=== PATIENT | female | born 1945 | race Hispanic/Latino ===

== ENCOUNTER → 2017-10-23 | Outpatient (CLI) | payer OTHER, MEDICARE | END | disposition home or self-care (01) | LOC: RAH 11:20 | PROVIDERS: ATTEND Internal Medicine | DX: Z12.31 Encounter for screening mammogram for malignant neoplasm of breast (principal) | CPT/HCPCS: 77067 ==

== ENCOUNTER 2017-11-07 12:59 | Emergency (ER) | payer OTHER, MEDICARE ==
[2017-11-07 13:49] LABS: BASOPHILS % (AUTO) 0.7 % (0.0-5.0); EOSINOPHILS % (AUTO) 1.7 % (0.0-8.0); HEMATOCRIT 38.5 % (36-48); LYMPHOCYTES % (AUTO) 23.4 % (21.0-51.0); MEAN CORPUSCULAR HEMOGLOBIN 31.3 pg (27.0-33.0); MEAN CORPUSCULAR HGB CONC 35.6 g/dL (32.0-36.0); MEAN CORPUSCULAR VOLUME 87.8 fL (79-99); MONOCYTES % (AUTO) 5.2 % (3.0-13.0); PLATELET COUNT (AUTO) 181 K/uL (130-400); RED BLOOD CELL COUNT(AUTO) 4.39 MIL/uL (4.00-5.50); WHITE BLOOD COUNT (AUTO) 4.9 K/uL (4.8-10.8)
[2017-11-07 13:58] LABS: CREATININE 0.7 mg/dL (0.5-1.5); POTASSIUM 3.9 mmol/L (3.5-5.1)
[2017-11-07] MEDS ORDERED: ASPIRIN 325 MG TABLET ONE (14:01)
[2017-11-07 14:12] LABS: ALBUMIN 3.9 g/dL (3.5-5.0); BILIRUBIN,TOTAL 0.7 mg/dL (0.2-1.0); CREATINE KINASE MB 1.2 ng/mL (0.5-3.6); TOTAL PROTEIN, SERUM 7.3 g/dL (6.0-8.3)
== END 2017-11-07 15:18 | disposition home or self-care (01) ==
LOC: EDH 12:59
DX: R07.89 Other chest pain (principal); I10 Essential (primary) hypertension; E78.5 Hyperlipidemia, unspecified; Z88.0 Allergy status to penicillin; Z88.8 Allergy status to other drugs, medicaments and biological substances; Z90.49 Acquired absence of other specified parts of digestive tract; Z98.890 Other specified postprocedural states
CPT/HCPCS: 36415; 71045; 80053; 82550; 82553; 84484; 85025; 93005

== ENCOUNTER → 2018-11-10 | Outpatient (CLI) | payer OTHER, MEDICARE | END | disposition home or self-care (01) | LOC: SHCH 11:22 | PROVIDERS: ATTEND Internal Medicine Cardiovascular Disease | DX: I10 Essential (primary) hypertension (principal) | CPT/HCPCS: 93306 ==

== ENCOUNTER → 2018-11-14 | Outpatient (CLI) | payer MEDICARE, OTHER | END | disposition home or self-care (01) | LOC: RAH 11:15 | PROVIDERS: ATTEND Internal Medicine | DX: Z12.31 Encounter for screening mammogram for malignant neoplasm of breast (principal) | CPT/HCPCS: 77067 ==

== ENCOUNTER → 2020-05-06 | Outpatient (CLI) | payer OTHER, MEDICARE | END | disposition home or self-care (01) | LOC: RAH 05-01 00:20 | PROVIDERS: ATTEND Internal Medicine | DX: Z12.31 Encounter for screening mammogram for malignant neoplasm of breast (principal) | CPT/HCPCS: 77067 ==

== ENCOUNTER 2020-07-02 17:52 | Observation (INO) | payer OTHER, MEDICARE ==
[~2020-07-02] VITALS: Ht 154.9 cm; Wt 72.0 kg
[2020-07-02] MEDS ORDERED: SODIUM CHLORIDE 0.9% 1000ML 1,000 ML IV ONE (18:20)
[2020-07-02] MEDS ORDERED: ASPIRIN 325 MG TABLET ONE (18:20)
[2020-07-02] MEDS ORDERED: NITROGLYCERIN 0.4 MG SL TAB SL ONE (18:20)
[2020-07-02 18:37] LABS: BASOPHILS % (AUTO) 0.4 % (0.0-5.0); EOSINOPHILS % (AUTO) 2.8 % (0.0-8.0); HEMATOCRIT 38.9 % (36-48); LYMPHOCYTES % (AUTO) 35.6 % (21.0-51.0); MEAN CORPUSCULAR HEMOGLOBIN 29.7 pg (27.0-33.0); MEAN CORPUSCULAR HGB CONC 33.4 g/dL (32.0-36.0); MONOCYTES % (AUTO) 7.9 % (3.0-13.0); NEUTROPHILS % (AUTO) 53.1 % (40.0-77.0); PLATELET COUNT (AUTO) 198 K/uL (130-400); RED BLOOD CELL COUNT(AUTO) 4.37 MIL/uL (4.00-5.50); RED CELL DISTRIBUTION WIDTH 13.3 % (11.0-15.5); WHITE BLOOD COUNT (AUTO) 5.3 K/uL (4.8-10.8)
[2020-07-02 18:45] LABS: CREATININE 0.8 mg/dL (0.5-1.5); POTASSIUM 3.5 mmol/L (3.5-5.1)
[2020-07-02 18:47] LABS: INR 0.94 (0.85-1.15); PARTIAL THROMBOPLASTIN TIME 25.7 SEC (26.3-35.5); PROTHROMBIN TIME 10.2 SEC (9.6-11.6)
[2020-07-02 18:49] LABS: ALBUMIN 3.9 g/dL (3.5-5.0); BILIRUBIN,TOTAL 0.4 mg/dL (0.2-1.0); TOTAL PROTEIN, SERUM 7.7 g/dL (6.0-8.3)
[2020-07-02 19:06] LABS: B-TYPE NATRIURETIC PEPTIDE 9 pg/mL (0-100)
[2020-07-02 19:39] LABS: APPEARANCE,URINE Clear (CLEAR); BILIRUBIN,URINE Negative (NEGATIVE); COLOR,URINE Yellow (YELLOW); GLUCOSE, URINE (UA) Negative (NEGATIVE); KETONES,URINE Negative (NEGATIVE); LEUKOCYTE ESTERASE ,URINE Moderate (NEGATIVE); NITRATE,URINE Negative (NEGATIVE); OCCULT BLOOD,URINE Negative (NEGATIVE); PH,URINE 6.5 (5.0-8.0); PROTEIN,URINE Negative (NEGATIVE); UROBILINOGEN,URINE 0.2 mg/dL (0.2-1.0)
[2020-07-02 19:58] LABS: BACTERIA,URINE Few /HPF (None Seen); RBC,URINE 0-1 /HPF (0-1); SQUAMOUS EPITHELIAL CELL,UR Few /HPF (0-2)
[2020-07-02] MEDS ORDERED: CEFTRIAXONE SODIUM 1 GM ONE (20:51)
[2020-07-02] MEDS ORDERED: NITROGLYCERIN 0.4 MG SL TAB SL PRN (23:45)
[2020-07-03 01:15] VITALS: BP 160/96
[2020-07-03 02:00] LABS: CREATINE KINASE, TOTAL 79 U/L (21-232); MYOGLOBIN 41 ng/mL (10-92); TROPONIN I < 0.04 ng/mL (0.00-0.06)
[2020-07-03 04:00] VITALS: BP 152/71
[2020-07-03 07:03] LABS: CREATINE KINASE, TOTAL 85 U/L (21-232); MYOGLOBIN 40 ng/mL (10-92); TROPONIN I < 0.04 ng/mL (0.00-0.06)
[2020-07-03 08:00] VITALS: BP 159/61
[2020-07-03 12:00] VITALS: BP 149/69
[2020-07-03 16:00] VITALS: BP 132/60
--- NOTE | 2020-07-03 16:23 | NUR ---
cm note met with patient and states resides at home alone, independent with ambulation and adls. no dme , no home services. dc plan is back home no dc needs. Addendum: 07/03/20 at 1625 by ABDIAZIZ OROZCO CM Amended: Links added.
== END 2020-07-03 18:19 | disposition home or self-care (01) ==
LOC: EDH 17:52 → EDHIP 21:45 → 3BH 07-03 01:00
PROVIDERS: ADMIT Internal Medicine; ATTEND Internal Medicine
DX: R07.89 Other chest pain (principal); I10 Essential (primary) hypertension; E78.5 Hyperlipidemia, unspecified; F41.9 Anxiety disorder, unspecified; Z90.49 Acquired absence of other specified parts of digestive tract; Z79.899 Other long term (current) drug therapy; Z88.0 Allergy status to penicillin; Z88.8 Allergy status to other drugs, medicaments and biological substances
CPT/HCPCS: 36415 ×2; 71045; 80053; 81001; 82550 ×3; 82948 ×3; 83690; 83874 ×2; 83880; 84484 ×3; 85025; 85610; 85730; 87077; 87088; 87186; 93005; 99285; G0378 ×20; J0696; J7030

== ENCOUNTER → 2021-02-21 | Outpatient (CLI) | payer OTHER, MEDICARE | END | disposition home or self-care (01) | LOC: RAH 08:09 | PROVIDERS: ATTEND Internal Medicine | DX: N20.0 Calculus of kidney (principal); K80.20 Calculus of gallbladder without cholecystitis without obstruction | CPT/HCPCS: 74176 ==

== ENCOUNTER → 2021-06-05 | Outpatient (CLI) | payer OTHER, MEDICARE | END | disposition home or self-care (01) | LOC: RAH 14:57 | PROVIDERS: ATTEND Internal Medicine | DX: Z12.31 Encounter for screening mammogram for malignant neoplasm of breast (principal) | CPT/HCPCS: 77067 ==

== ENCOUNTER 2021-11-05 05:44 | Emergency (ER) | payer OTHER, MEDICARE ==
[~2021-11-05] VITALS: Ht 154.9 cm; Wt 71.7 kg
[2021-11-05 06:02] LABS: BASOPHILS % (AUTO) 0.6 % (0.0-5.0); EOSINOPHILS % (AUTO) 3.2 % (0.0-8.0); HEMATOCRIT 42.1 % (36-48); MEAN CORPUSCULAR VOLUME 90.7 fL (79-99); MONOCYTES % (AUTO) 7.6 % (3.0-13.0); NEUTROPHILS % (AUTO) 50.4 % (40.0-77.0); PLATELET COUNT (AUTO) 186 K/uL (130-400); RED BLOOD CELL COUNT(AUTO) 4.64 MIL/uL (4.00-5.50); RED CELL DISTRIBUTION WIDTH 13.5 % (11.0-15.5); WHITE BLOOD COUNT (AUTO) 5.3 K/uL (4.8-10.8)
[2021-11-05 06:16] LABS: BILIRUBIN,URINE Negative (NEGATIVE); COLOR,URINE Yellow (YELLOW); GLUCOSE, URINE (UA) Negative (NEGATIVE); KETONES,URINE Negative (NEGATIVE); LEUKOCYTE ESTERASE ,URINE Large (NEGATIVE); NITRATE,URINE Negative (NEGATIVE); OCCULT BLOOD,URINE Trace (NEGATIVE); PROTEIN,URINE Trace mg/dL (NEGATIVE); UROBILINOGEN,URINE 0.2 mg/dL (0.2-1.0)
[2021-11-05 06:17] LABS: APPEARANCE,URINE CLEAR (CLEAR)
[2021-11-05 06:19] LABS: ALBUMIN 3.9 g/dL (3.5-5.0); BILIRUBIN,TOTAL 0.7 mg/dL (0.2-1.0); CREATININE 0.7 mg/dL (0.5-1.5); POTASSIUM 3.9 mmol/L (3.5-5.1); TOTAL PROTEIN, SERUM 7.3 g/dL (6.0-8.3)
[2021-11-05] MEDS ORDERED: KETOROLAC 15MG/ML VIAL (15MG/ML) ONE (07:04)
[2021-11-05] MEDS ORDERED: CYCL10TA16 PO (07:05)
[2021-11-05] MEDS ORDERED: IBUP-2070 PO (07:05)
[2021-11-05 07:20] LABS: BACTERIA,URINE Few /HPF (None Seen); RBC,URINE 0-1 /HPF (0-1); SQUAMOUS EPITHELIAL CELL,UR 50-100 /HPF (0-2)
[2021-11-05] MEDS ORDERED: KETOROLAC 15MG/ML VIAL (15MG/ML) IM ONE (07:30)
[2021-11-05 07:44] VITALS: BP 133/59
== END 2021-11-05 07:44 | disposition home or self-care (01) ==
LOC: EDH 05:44
DX: R07.89 Other chest pain (principal); E78.00 Pure hypercholesterolemia, unspecified; Z88.0 Allergy status to penicillin; Z88.8 Allergy status to other drugs, medicaments and biological substances; Z90.89 Acquired absence of other organs; Z98.890 Other specified postprocedural states
CPT/HCPCS: 36415; 71045; 80053; 81001; 84484; 85025; 87088; 93005; 96372; 99285; J1885

== ENCOUNTER 2022-03-02 19:58 | Emergency (ER) | payer OTHER, MEDICARE ==
[~2022-03-02] VITALS: Ht 157.5 cm; Wt 68.0 kg
[~2022-03-02 19:58] MED LIST: CYCL10TA16 PO; IBUP-2070 PO
[2022-03-02 20:31] VITALS: BP 167/80
[2022-03-02 21:01] LABS: BASOPHILS % (AUTO) 0.4 % (0.0-5.0); EOSINOPHILS % (AUTO) 0.8 % (0.0-8.0); HEMATOCRIT 40.9 % (36-48); LYMPHOCYTES % (AUTO) 16.5 % (21.0-51.0); MEAN CORPUSCULAR HEMOGLOBIN 29.7 pg (27.0-33.0); MEAN CORPUSCULAR VOLUME 87.4 fL (79-99); MONOCYTES % (AUTO) 13.7 % (3.0-13.0); NEUTROPHILS % (AUTO) 68.4 % (40.0-77.0); PLATELET COUNT (AUTO) 160 K/uL (130-400); RED BLOOD CELL COUNT(AUTO) 4.68 MIL/uL (4.00-5.50); RED CELL DISTRIBUTION WIDTH 13.7 % (11.0-15.5)
[2022-03-02 21:22] LABS: ALBUMIN 3.9 g/dL (3.5-5.0); CREATININE 0.9 mg/dL (0.5-1.5); POTASSIUM 3.4 mmol/L (3.5-5.1); TOTAL PROTEIN, SERUM 8.1 g/dL (6.0-8.3)
== END 2022-03-02 21:57 | disposition home or self-care (01) ==
LOC: EDH 19:58
DX: U07.1 COVID-19 (principal); I10 Essential (primary) hypertension; Z88.0 Allergy status to penicillin; Z88.8 Allergy status to other drugs, medicaments and biological substances; Z79.899 Other long term (current) drug therapy
CPT/HCPCS: 99285; 71045; 87635; 84484; 80053; 85025; 87880; 87804 ×2; 36415; 93005; C9803

== ENCOUNTER → 2022-06-06 | Outpatient (CLI) | payer OTHER, MEDICARE | END | disposition home or self-care (01) | LOC: RAH 09:38 | PROVIDERS: ATTEND Internal Medicine | DX: Z12.31 Encounter for screening mammogram for malignant neoplasm of breast (principal) | CPT/HCPCS: 77067 ==

== ENCOUNTER 2022-08-03 14:38 | Emergency (ER) | payer OTHER, MEDICARE ==
[~2022-08-03] VITALS: Ht 154.9 cm; Wt 71.2 kg
[2022-08-03 14:49] VITALS: BP 134/31
[2022-08-03] MEDS ORDERED: CETIRIZINE HCL 5 MG TABLET PO SCH (15:30)
[2022-08-03] MEDS ORDERED: DIPH25 PO (15:34)
== END 2022-08-03 15:44 | disposition home or self-care (01) ==
LOC: EDH 14:38
DX: L29.9 Pruritus, unspecified (principal); T36.8X5A Adverse effect of other systemic antibiotics, initial encounter; I10 Essential (primary) hypertension; E78.00 Pure hypercholesterolemia, unspecified; Z88.0 Allergy status to penicillin; Z79.1 Long term (current) use of non-steroidal anti-inflammatories (NSAID); Z88.1 Allergy status to other antibiotic agents; Y92.89 Other specified places as the place of occurrence of the external cause
CPT/HCPCS: 99282

== ENCOUNTER 2022-09-16 06:52 | Emergency (ER) | payer OTHER, MEDICARE ==
[~2022-09-16] VITALS: Ht 154.9 cm; Wt 71.7 kg
[~2022-09-16 06:52] MED LIST changes: +DIPH-1242 PO
[2022-09-16 06:56] VITALS: BP 150/76
[2022-09-16] MEDS ORDERED: ACETAMINOPHEN 325 MG TAB PO ONE (08:30)
[2022-09-16 08:42] LABS: BASOPHILS % (AUTO) 0.4 % (0.0-5.0); EOSINOPHILS % (AUTO) 0.9 % (0.0-8.0); HEMATOCRIT 39.3 % (36-48); LYMPHOCYTES % (AUTO) 12.1 % (21.0-51.0); MEAN CORPUSCULAR HGB CONC 33.8 g/dL (32.0-36.0); MEAN CORPUSCULAR VOLUME 88.5 fL (79-99); MONOCYTES % (AUTO) 9.3 % (3.0-13.0); NEUTROPHILS % (AUTO) 76.9 % (40.0-77.0); PLATELET COUNT (AUTO) 165 K/uL (130-400); RED BLOOD CELL COUNT(AUTO) 4.44 MIL/uL (4.00-5.50); RED CELL DISTRIBUTION WIDTH 13.7 % (11.0-15.5); WHITE BLOOD COUNT (AUTO) 6.7 K/uL (4.8-10.8)
[2022-09-16 08:53] LABS: CREATININE 0.8 mg/dL (0.5-1.5); POTASSIUM 3.7 mmol/L (3.5-5.1)
[2022-09-16 09:00] LABS: ALBUMIN 3.7 g/dL (3.5-5.0); CRP QUANTITATIVE 42.7 mg/L (0.00-9.0); TOTAL PROTEIN, SERUM 7.9 g/dL (6.0-8.3)
[2022-09-16 09:47] LABS: B-TYPE NATRIURETIC PEPTIDE 15 pg/mL (0-100)
[2022-09-16] MEDS ORDERED: BENZ-39 PO (10:21)
[2022-09-16] MEDS ORDERED: ACET325T51 PO (10:21)
== END 2022-09-16 10:49 | disposition home or self-care (01) ==
LOC: EDH 06:52
DX: U07.1 COVID-19 (principal); J18.9 Pneumonia, unspecified organism; E78.00 Pure hypercholesterolemia, unspecified; I10 Essential (primary) hypertension; J45.909 Unspecified asthma, uncomplicated; Z88.0 Allergy status to penicillin; Z88.1 Allergy status to other antibiotic agents; Z98.890 Other specified postprocedural states
CPT/HCPCS: 99285; 71045; 87635; 82550; 83735; 84484; 80053; 83880; 85025; 87880; 87804 ×2; 86140; 36415; 93005; 84145; C9803

== ENCOUNTER → 2022-12-12 | Outpatient (CLI) | payer MEDICARE, OTHER ==
[~2022-12-12] MED LIST changes: +ACET325T51 PO; +BENZ-39 PO
[2022-12-12 12:25] LABS: ALBUMIN 3.9 g/dL (3.5-5.0); CREATININE 0.8 mg/dL (0.5-1.5); POTASSIUM 3.7 mmol/L (3.5-5.1); TOTAL PROTEIN, SERUM 7.6 g/dL (6.0-8.3)
== END | disposition home or self-care (01) ==
LOC: LAB 08:17
PROVIDERS: ATTEND Internal Medicine Cardiovascular Disease
DX: R07.9 Chest pain, unspecified (principal)
CPT/HCPCS: 36415; 80053

== ENCOUNTER → 2022-12-21 | Outpatient (CLI) | payer OTHER ==
[~2022-12-21] MED LIST changes: +IOHEXOL 350 MG/ML 100ML INFUS..BTL IV ONE
== END | disposition home or self-care (01) ==
LOC: RAH 08:34
PROVIDERS: ATTEND Internal Medicine Cardiovascular Disease
DX: R07.9 Chest pain, unspecified (principal)
CPT/HCPCS: 75574; Q9967

== ENCOUNTER → 2022-12-26 | Outpatient (CLI) | payer OTHER ==
[~2022-12-26] MED LIST changes: -IOHEXOL 350 MG/ML 100ML INFUS..BTL IV ONE
== END | disposition home or self-care (01) ==
LOC: RAH 11:05
PROVIDERS: ATTEND Internal Medicine
DX: E04.2 Nontoxic multinodular goiter (principal)
CPT/HCPCS: 76536

== ENCOUNTER → 2023-06-10 | Outpatient (CLI) | payer OTHER | END | disposition home or self-care (01) | LOC: RAH 10:09 | PROVIDERS: ATTEND Internal Medicine | DX: Z12.31 Encounter for screening mammogram for malignant neoplasm of breast (principal) | CPT/HCPCS: 77067 ==

== ENCOUNTER 2023-09-05 06:44 | Emergency (ER) | payer OTHER ==
[~2023-09-05] VITALS: Ht 157.5 cm; Wt 73.5 kg
[2023-09-05 07:21] LABS: APPEARANCE,URINE CLOUDY (CLEAR); BILIRUBIN,URINE NEGATIVE (NEGATIVE); COLOR,URINE LIGHT-YELLOW (YELLOW); GLUCOSE, URINE (UA) NEGATIVE (NEGATIVE); KETONES,URINE NEGATIVE (NEGATIVE); LEUKOCYTE ESTERASE ,URINE 75 Leu/uL (NEGATIVE); NITRATE,URINE NEGATIVE (NEGATIVE); OCCULT BLOOD,URINE NEGATIVE (NEGATIVE); PROTEIN,URINE 30 mg/dL (NEGATIVE); UROBILINOGEN,URINE 0.2 mg/dL (0.2-1.0)
[2023-09-05 07:23] LABS: ADD UA MICROSCOPIC YES
[2023-09-05 07:25] LABS: MUCUS,URINE RARE LPF (None Seen); SQUAMOUS EPITHELIAL CELL,UR MOD /HPF (0-2)
[2023-09-05 07:33] LABS: SARS-CoV-2, RNA, NAAT NEGATIVE SARS CoV-2 (NEGATIVE)
[2023-09-05 07:36] LABS: INFLUENZA TYPE A Negative For Type A (NEGATIVE); INFLUENZA TYPE B Negative For Type B (NEGATIVE)
[2023-09-05] MEDS ORDERED: 0.9%NACL 1000ML 1,000 ML IV SCH (08:00)
[2023-09-05] MEDS ORDERED: INSULIN HUMULIN R 100 UNIT/ML 3ML IV ONE (08:00)
[2023-09-05] MEDS ORDERED: MECLIZINE HCL 25 MG TABLET PO ONE ×2 (08:00→08:30)
[2023-09-05 08:01] LABS: BASOPHILS # (AUTO) 0.03 K/uL (0.00-0.20); BASOPHILS % (AUTO) 0.7 % (0.0-5.0); EOSINOPHILS # (AUTO) 0.09 K/uL (0.00-0.70); HEMATOCRIT 39.7 % (36-48); IMMATURE GRANULOCYTE ABSOLUTE 0.01 K/uL (0-1); LYMPHOCYTES # (AUTO) 1.2 K/uL (1.0-4.8); LYMPHOCYTES % (AUTO) 25.3 % (21.0-51.0); MEAN CORPUSCULAR HEMOGLOBIN 30.3 pg (27.0-33.0); MEAN CORPUSCULAR VOLUME 89.2 fL (79-99); MONOCYTES # (AUTO) 0.3 K/uL (0.1-1.0); MONOCYTES % (AUTO) 6.4 % (3.0-13.0); NEUTROPHILS % (AUTO) 65.4 % (40.0-77.0); PLATELET COUNT (AUTO) 176 K/uL (130-400); RED BLOOD CELL COUNT(AUTO) 4.45 MIL/uL (4.00-5.50); RED CELL DISTRIBUTION WIDTH 13.4 % (11.0-15.5); WHITE BLOOD COUNT (AUTO) 4.6 K/uL (4.8-10.8)
[2023-09-05 08:13] LABS: ALBUMIN 3.5 g/dL (3.5-5.0); BILIRUBIN,TOTAL 0.8 mg/dL (0.2-1.0); CREATININE 0.7 mg/dL (0.5-1.5); POTASSIUM 3.6 mmol/L (3.5-5.1); TOTAL PROTEIN, SERUM 7.2 g/dL (6.0-8.3)
[2023-09-05] MEDS ORDERED: FAMOTIDINE 20MG VIAL IV ONE (08:30)
[2023-09-05] MEDS ORDERED: METOCLOPRAMIDE 10 MG/2 ML VIAL IVP ONE (08:30)
[2023-09-05] MEDS ORDERED: KETOROLAC 30MG VIAL (30MG/ML) IVP ONE (08:30)
[2023-09-05] MEDS ORDERED: METO-296 PO (10:22)
[2023-09-05] MEDS ORDERED: CIPR-278 PO (10:22)
[2023-09-05] MEDS ORDERED: CEPHALEXIN 500 MG CAPSULE ONE (10:30)
[2023-09-05 10:50] VITALS: BP 154/73; PULSE 72; RESP 16; O2SAT 97
== END 2023-09-05 11:10 | disposition home or self-care (01) ==
LOC: EDH 06:44
DX: G44.209 Tension-type headache, unspecified, not intractable (principal); H81.10 Benign paroxysmal vertigo, unspecified ear; N39.0 Urinary tract infection, site not specified; J45.909 Unspecified asthma, uncomplicated; E78.00 Pure hypercholesterolemia, unspecified; I10 Essential (primary) hypertension; Z88.0 Allergy status to penicillin; Z88.1 Allergy status to other antibiotic agents; Z20.822 Contact with and (suspected) exposure to COVID-19
CPT/HCPCS: 36415; 80053; 81001; 85025; 87088; 87635; 87804; 87880; 93005

== ENCOUNTER → 2024-01-20 | Outpatient (CLI) | payer OTHER ==
[~2024-01-20] MED LIST changes: +CIPR-278 PO; +METO-296 PO
[2024-01-20 10:28] LABS: INR <= 0.93 (0.85-1.15); PROTHROMBIN TIME 10.9 SEC (9.6-11.6)
[2024-01-20 10:29] LABS: PARTIAL THROMBOPLASTIN TIME 26.2 SEC (26.3-35.5)
== END | disposition home or self-care (01) ==
LOC: RAH 09:34
PROVIDERS: ATTEND Internal Medicine
DX: E04.2 Nontoxic multinodular goiter (principal); I10 Essential (primary) hypertension; E78.5 Hyperlipidemia, unspecified; E66.9 Obesity, unspecified; Z79.01 Long term (current) use of anticoagulants; Z88.0 Allergy status to penicillin; Z88.8 Allergy status to other drugs, medicaments and biological substances; Z79.899 Other long term (current) drug therapy; Z68.29 Body mass index [BMI] 29.0-29.9, adult
CPT/HCPCS: 10005; 10006; 36415; 76942; 85610; 85730; 88173; 88305

== ENCOUNTER → 2024-06-11 | Outpatient (CLI) | payer OTHER | END | disposition home or self-care (01) | LOC: RAH 09:24 | PROVIDERS: ATTEND Internal Medicine | DX: Z12.31 Encounter for screening mammogram for malignant neoplasm of breast (principal); R92.30 Dense breasts, unspecified | CPT/HCPCS: 77067 ==

== ENCOUNTER 2024-07-15 22:14 | Emergency (ER) | payer OTHER ==
[~2024-07-15] VITALS: Ht 157.5 cm; Wt 71.7 kg
[~2024-07-15 22:14] MED LIST changes: +ACET-3859 PO; -ACET325T51 PO
[2024-07-15 22:16] VITALS: TEMP 97.6
--- NOTE | 2024-07-15 22:52 | ERN ---
ED Note History of Present Illness Stated Complaint: C/O HEADACHE WITH LEFT SHOULDER PAIN Chief Complaint: Headache Time Seen by MD: 22:17 Time Seen by Midlevel: 22:17 Dictation: The patient is a 78-year-old female with history of hypertension, who presents to the emergency department with complaints of left side shoulder pain radiating to her occipital region left side headache onset yesterday. Patient denies any head trauma, chest pain, dizziness, nausea or vomiting, fevers. Patient reports she gets frequently headaches about twice a week. Allergies: Coded Allergies: Penicillins (Unverified Allergy, Unknown, 07/02/20) nitrofurantoin (Unverified Allergy, Unknown, 07/02/20) Uncoded Allergies: SMZ/TMP (Allergy, Unknown, 09/16/22) Home Meds Active Scripts Levofloxacin (Levaquin 750Mg Tabs) 750 Mg Tablet, 750 MG PO DAILY for 5 Days, #5 TAB 0 Refills Prov:PAXTON PAVON INSURANCE AGENCY MANAGER 07/16/24 Ciprofloxacin HCl (Cipro) 500 Mg Tablet, 1 TAB PO DAILY for 7 Days, #7 TAB 0 Refills Prov:ANNIA PATE Sr., MD 09/05/23 Metoclopramide HCl (Reglan) 10 Mg Tablet, 10 MG PO QID PRN for Headache and/or Nausea, #40 TAB 2 Refills Prov:ANNIA PATE Sr., MD 09/05/23 Acetaminophen (Acetaminophen) 325 Mg Tablet, 650 MG PO Q6HPRN PRN for FEVER, PAIN, #60 TAB 0 Refills Prov:ANITHA ACE MD 09/16/22 Benzonatate (Tessalon Perles) 100 Mg Cap, 100 MG PO TID PRN for COUGH, #30 CAP 0 Refills Prov:ANITHA ACE MD 09/16/22 Diphenhydramine HCl (Benadryl) 25 Mg Cap, 25 MG PO Q6H PRN for ITCHING for 5 Days, #20 CAP Prov:DAHLIA OTT V INSURANCE AGENCY MANAGER 08/03/22 Cyclobenzaprine HCl (Flexeril) 10 Mg Tab, 10 MG PO Q8H for 10 Days, #30 TAB Prov:TETO OLIVA MD 11/05/21 Ibuprofen (Ibuprofen) 600 Mg Tablet, 600 MG PO Q8H PRN for PAIN for 10 Days, #30 TAB Prov:TETO OLIVA MD 11/05/21 Past Medical History Past Medical History: High Cholesterol, Hypertension Surgical History: Other Social History: Negative RN Note Reviewed/Agreed w/PFSH: Yes Review of System Dictation Constitutional: Negative for fever,chills, and weight loss Eyes: Negative for injury, pain,redness, and discharge ENT: Negative for injury,pain or swelling Cardiovascular: Negative for chest pain, palpitations, and edema Respiratory: Negative for shortness of breath, cough, and wheezing, Abdomen/GI: Negative for abdominal pain, nausea, vomiting, diarrhea, and constipation Back: Negative for injury and pain : Negative for injury, bleeding and discharge MS/Extremity: Negative for injury and deformity positive for left shoulder pain Skin: Negative for rash, and discoloration Neuro: Negative for weakness, numbness, tingling, and seizure positive for headache Psych: Negative for suicide ideation, homicidal ideation, and hallucinations Initial Vital Sign VS Vital Signs Date Time Temp Pulse Resp B/P (MAP) Pulse Ox O2 Delivery O2 Flow Rate FiO2 07/15/24 22:16 97.5 68 20 162/78 97 Room Air 07/15/24 23:19 0 21 Physical Exam Dictation General: awake, alert, NAD Head/Face: Normocephalic, atraumatic Eyes: PERRL, EOMI, vision at baseline ENT: oral cavity clear, TMs clear, no signs of infection Neck: Trachea midline, supple, no nuchal rigidity Cardiovascular: RRR, normal S1/S2, No MRGs, no JVD Respiratory: CTAB, no respiratory distress, No rales or wheezes Abdomen: Soft, non-tender, non-distended, normal bowel sounds, no guarding or rebound. Skin: Warm, dry, normal turgor, no rash MS/Extremity: Pulses equal, no cyanosis, neurovascular intact, FROM Neuro: COAx4, GCS 15, strength 5/5, CN 2-12 intact, normal cerebellar exam, normal gait, no facial droop, upper ext equal in strength, lower ext equal in strength, no facial droop. Psych: Normal behavior, mood, and affect normal Results (Laboratory/Radiology) Laboratory/Radiology Laboratory Tests Test 07/15/24 23:08 07/15/24 23:14 07/15/24 23:27 Troponin I High Sensitivity 8 ng/L (4-50) White Blood Count 6.6 K/uL (4.8-10.8) Red Blood Count 4.72 MIL/uL (4.00-5.50) Hemoglobin 14.3 g/dL (12.0-16.0) Hematocrit 42.4 % (36-48) Mean Corpuscular Volume 89.8 fL (79-99) Mean Corpuscular Hemoglobin 30.3 pg (27.0-33.0) Mean Corpuscular Hemoglobin Concent 33.7 g/dL (32.0-36.0) Red Cell Distribution Width 13.3 % (11.0-15.5) Platelet Count 193 K/uL (130-400) Mean Platelet Volume 11.0 fL (7.5-10.5) H Immature Granulocyte % (Auto) 0.2 % (0-1) Neutrophils (%) (Auto) 56.7 % (40.0-77.0) Lymphocytes (%) (Auto) 32.4 % (21.0-51.0) Monocytes (%) (Auto) 7.4 % (3.0-13.0) Eosinophils (%) (Auto) 2.7 % (0.0-8.0) Basophils (%) (Auto) 0.6 % (0.0-5.0) Neutrophils # (Auto) 3.8 K/uL (1.8-7.7) Lymphocytes # (Auto) 2.1 K/uL (1.0-4.8) Monocytes # (Auto) 0.5 K/uL (0.1-1.0) Eosinophils # (Auto) 0.18 K/uL (0.00-0.70) Basophils # (Auto) 0.04 K/uL (0.00-0.20) Absolute Immature Granulocyte (auto 0.01 K/uL (0-1) Nucleated Red Blood Cells 0.0 % (0.0-0.19) Sodium Level 138 mmol/L (136-145) Potassium Level 3.3 mmol/L (3.5-5.1) L Chloride Level 101 mmol/L (101-111) Carbon Dioxide Level 31 mmol/L (21-32) Blood Urea Nitrogen 22 mg/dL (7-18) H Creatinine 0.7 mg/dL (0.5-1.0) Glomerular Filtration Rate Calc 88 mL/min (>90) Random Glucose 113 mg/dL (70-105) H Total Calcium 9.4 mg/dL (8.5-10.1) Urine Color YELLOW (YELLOW) Urine Appearance CLOUDY (CLEAR) H Urine pH 5.5 (5.0-8.0) Urine Specific [place] 1.030 (1.001-1.031) Urine Protein 10 mg/dL (NEGATIVE) H Urine Glucose (UA) NEGATIVE mg/dL (NEGATIVE) Urine Ketones NEGATIVE mg/dL (NEGATIVE) Urine Occult Blood NEGATIVE (NEGATIVE) Urine Nitrate NEGATIVE (NEGATIVE) Urine Bilirubin NEGATIVE mg/dL (NEGATIVE) Urine Urobilinogen 0.2 mg/dL (0.2-1.0) Urine Leukocyte Esterase 75 Marisol/uL (NEGATIVE) H Urine RBC 2-5 /HPF (0-1) H Urine WBC 6-10 /HPF (0-1) H Urine Squamous Epithelial Cells MOD /HPF (0-2) Urine Calcium Oxalate Crystals MOD /LPF (None Seen) Urine Bacteria MOD /HPF (None Seen) REASON: headache ORDERING PHYSICIAN: PAXTON PAVON PROCEDURE: HEAD WO - CT HEAD/BRAIN W/O CONTRAST CT HEAD/BRAIN W/O CONTRAST HISTORY: Headaches COMPARISON: None TECHNIQUE: Multiple sequential axial images of the head were obtained from the base of the skull through vertex. Patient was not given contrast through intravenous route. FINDINGS: The ventricles and extraventricular CSF spaces are nondilated for patient's age. There is no midline shift, mass effect or herniation. No acute intracranial bleed is seen. Visualized portion of the paranasal sinuses are grossly within normal limits. IMPRESSION: 1. No acute intracranial bleed is seen. CT was performed with one or more following dose reduction techniques: automated exposure control, adjustment of the mA and kv according to patient's size, or use of a iterative reconstruction technique. Labs Reviewed?: Yes EKG: (+) rhythm, (+) LA (207), (+) QRS EKG Comment: EKG 07/15/2024 2243 ventricular rate 70, or guarding no overt and rhythm, normal sinus rhythm, STEMI. ED Course ED Course Orders Procedure Category Date Status Time Cbc With Differential LAB 07/15/24 Complete 22:34 Chest 1vw RAD 07/15/24 Taken 22:34 12 Lead Ekg Tracing- EKG 07/15/24 Logged Technical 22:34 0.9%Nacl 1000ml (Ns PHA 07/15/24 Complete 1000ml) 23:00 Troponin I High LAB 07/15/24 Complete Sensitivity 22:34 Basic Metabolic Panel LAB 07/15/24 Complete 22:34 Acetaminophen 500mg PHA 07/15/24 Complete Tab (Tylenol 500mg T 23:00 Ct Head/Brain W/O CT 07/15/24 Resulted Contrast 22:34 Shoulder Comp 2+Vws Lt RAD 07/15/24 Taken 22:34 Urinalysis Profile LAB 07/15/24 Complete 23:32 Culture Urine CHARISMA 07/16/24 In Process 00:02 Ketorolac PHA 07/16/24 Complete Tromethamine 15mg/Ml 00:30 Potassium Bicarb/Cit PHA 07/16/24 Complete Ac 25meq (K-Lyte Ta 00:30 Current Medications Medications (Trade) Dose Ordered Sig/Karo Route PRN Reason Start Time Stop Time Status Last Admin Dose Admin Acetaminophen (TYLenol 500MG TAB) 1,000 mg ONCE ONCE PO 07/15/24 23:00 07/15/24 23:01 DC 07/15/24 23:30 Ketorolac Tromethamine (toRADol) 15 mg ONCE ONCE IV 07/16/24 00:30 07/16/24 00:31 DC 07/16/24 00:57 Potassium Bicarbonate (K-Lyte Tablet Eff 25 Meq Tablet.eff) 25 meq ONCE ONCE PO 07/16/24 00:30 07/16/24 00:31 DC 07/16/24 00:57 Sodium Chloride 1,000 ml @ 125 mls/hr ONCE ONCE IV 07/15/24 23:00 07/16/24 01:51 DC 07/15/24 23:29 Vital Signs Date Time Temp Pulse Resp B/P (MAP) Pulse Ox O2 Delivery O2 Flow Rate FiO2 07/16/24 01:22 60 16 139/43 97 Room Air* 0 07/15/24 23:19 66 18 137/44 96 Room Air* 0 21 07/15/24 22:16 97.5 68 20 162/78 97 Room Air Medical Decision Making MDM The patient is a 78-year-old female with history of hypertension, who presents to the emergency department with complaints of left side shoulder pain radiating to her occipital region left side headache onset yesterday. Patient d enies any head trauma, chest pain, dizziness, nausea or vomiting, fevers. Patient reports she gets frequently headaches about twice a week. CBC showed no leukocytosis, no anemia, chemistry showed mild hypokalemia and I was, GFR 88, negative troponin, urinalysis positive for leukocyte esterase. CT abdomen showed no acute intracranial bleed. Chest x-ray unremarkable, shoulder x-ray showed no obvious fractures or dislocations. Patient reports improving in headache.. She continued neurologically intact, in no acute distress. Patient will be discharged to follow up with PCP. Differential diagnosis: Tension headache, intracerebral hemorrhage, ACS, dehydration, muscle spasm Need for hospitalization: Patient does not meet criteria for hospitalization. There are no social concerns with this patient. Medical management and examination interpretation discussions were had by me with other qualified healthcare professionals as indicated for the patient's care. DX & DISP Disposition: Discharge Departure Impression: Primary Impression: Headache Additional Impressions: Left shoulder pain, Muscle spasm, UTI (urinary tract infection), Hypokalemia Condition: Stable Scripts Levofloxacin (Levaquin 750Mg Tabs) 750 Mg Tablet 750 MG PO DAILY for 5 Days, #5 TAB 0 Refills Prov: PAXTON PAVON 07/16/24 Additional Instructions: Please follow-up with your primary doctor 1-2 days. Take medications as prescribed. If symptoms worsen please return to the ER. Referrals: ARI RODRIGUEZ MD (PCP) Time of Disposition: 00:39 I have reviewed the case, and I agree with, Diagnosis and Plan ATTESTATION BY PHYSICIAN I PERFORMED THE SUBSTANTIVE PORTION OF THE VISIT. I HAVE REVIEWED AND PERSONALLY MADE AND APPROVED THE MANAGEMENT PLAN THAT IS DOCUMENTED IN THE NOTE BY MYSELF FOR THE A PP. I ACKNOWLEDGED FOR RESPONSIBILITY FOR THE PATIENT'S MANAGEMENT PLAN. PAXTON PAVON Jul 15, 2024 22:51 MABLE MCWILLIAMS MD Jul 16, 2024 05:20
[2024-07-15 23:24] LABS: BASOPHILS # (AUTO) 0.04 K/uL (0.00-0.20); BASOPHILS % (AUTO) 0.6 % (0.0-5.0); EOSINOPHILS # (AUTO) 0.18 K/uL (0.00-0.70); EOSINOPHILS % (AUTO) 2.7 % (0.0-8.0); HEMATOCRIT 42.4 % (36-48); IMMATURE GRANULOCYTE ABSOLUTE 0.01 K/uL (0-1); LYMPHOCYTES # (AUTO) 2.1 K/uL (1.0-4.8); LYMPHOCYTES % (AUTO) 32.4 % (21.0-51.0); MEAN CORPUSCULAR HEMOGLOBIN 30.3 pg (27.0-33.0); MEAN CORPUSCULAR HGB CONC 33.7 g/dL (32.0-36.0); MEAN CORPUSCULAR VOLUME 89.8 fL (79-99); MONOCYTES # (AUTO) 0.5 K/uL (0.1-1.0); MONOCYTES % (AUTO) 7.4 % (3.0-13.0); NEUTROPHILS # (AUTO) 3.8 K/uL (1.8-7.7); NEUTROPHILS % (AUTO) 56.7 % (40.0-77.0); PLATELET COUNT (AUTO) 193 K/uL (130-400); RED BLOOD CELL COUNT(AUTO) 4.72 MIL/uL (4.00-5.50); RED CELL DISTRIBUTION WIDTH 13.3 % (11.0-15.5); WHITE BLOOD COUNT (AUTO) 6.6 K/uL (4.8-10.8)
[2024-07-15] MEDS: 0.9%NACL 1000ML 1,000 ML IV ONE (23:29)
[2024-07-15] MEDS: acetaMINOPHEN 500 MG TABLET PO ONE (23:30)
[2024-07-15 23:32] LABS: CREATININE 0.7 mg/dL (0.5-1.0); POTASSIUM 3.3 mmol/L (3.5-5.1)
--- NOTE | 2024-07-15 23:52 | HMCIMG ---
CT HEAD/BRAIN W/O CONTRAST HISTORY: Headaches COMPARISON: None TECHNIQUE: Multiple sequential axial images of the head were obtained from the base of the skull through vertex. Patient was not given contrast through intravenous route. FINDINGS: The ventricles and extraventricular CSF spaces are nondilated for patient's age. There is no midline shift, mass effect or herniation. No acute intracranial bleed is seen. Visualized portion of the paranasal sinuses are grossly within normal limits. IMPRESSION: 1. No acute intracranial bleed is seen. CT was performed with one or more following dose reduction techniques: automated exposure control, adjustment of the mA and kv according to patient's size, or use of a iterative reconstruction technique.
[2024-07-15 23:56] LABS: APPEARANCE,URINE CLOUDY (CLEAR); BILIRUBIN,URINE NEGATIVE (NEGATIVE); COLOR,URINE YELLOW (YELLOW); GLUCOSE, URINE (UA) NEGATIVE (NEGATIVE); KETONES,URINE NEGATIVE (NEGATIVE); LEUKOCYTE ESTERASE ,URINE 75 Leu/uL (NEGATIVE); NITRATE,URINE NEGATIVE (NEGATIVE); OCCULT BLOOD,URINE NEGATIVE (NEGATIVE); PH,URINE 5.5 (5.0-8.0); PROTEIN,URINE 10 mg/dL (NEGATIVE); UROBILINOGEN,URINE 0.2 mg/dL (0.2-1.0)
[2024-07-16 00:01] LABS: ADD UA MICROSCOPIC YES
[2024-07-16 00:09] LABS: BACTERIA,URINE MOD /HPF (None Seen); CALCIUM OXALATE CRYSTALS,UR MOD /LPF (None Seen); MUCUS,URINE RARE LPF (None Seen); SQUAMOUS EPITHELIAL CELL,UR MOD /HPF (0-2)
[2024-07-16] MEDS ORDERED: LEVO750T68 PO (00:41)
[2024-07-16] MEDS: PoTASSium BIcarbonate/CIT AC 25 MEQ TABLET.EFF PO ONE (00:57)
[2024-07-16] MEDS: ketOROlac 15MG/ML VIAL (15MG/ML) IV ONE (00:57)
[2024-07-16 01:22] VITALS: BP 139/43; PULSE 60; RESP 16; O2SAT 97
--- NOTE | 2024-07-16 05:26 | EKG ---
[facility] Test Date: 2024-07-15 Test Time: 22:43:40 Pat Name: ELIGIO NUGENT Department: ED Room: Gender: F Guard Chief: [id number] : 1945 Requested By: PAXTON PAVON Order Number: [id number] Reading MD: Lencho Sanders Measurements Intervals [place] Rate: 70 P: 15 MO: 207 QRS: -29 QRSD: 100 T: -23 QT: 356 QTc: 385 Interpretive Statements Sinus rhythm Low voltage, precordial leads Borderline T abnormalities, diffuse leads Compared to ECG 09/05/2023 07:00:38 Low QRS voltage now present T-wave abnormality now present Left-axis deviation no longer present Electronically Signed On 07-16-2024 20:46:02 MORTGAGE ASSISTANT by Lencho Sanders Please click the below link to view image of tracing.
--- NOTE | 2024-07-16 10:11 | HMCIMG ---
LEFT SHOULDER RADIOGRAPHS - 2-3 VIEWS INDICATION: Pain COMPARISON: None FINDINGS: No evidence for acute fracture or dislocation. Acromioclavicular and glenohumeral alignments are well maintained. Visible portions of the left clavicle are intact. IMPRESSION: No evidence for fracture or dislocation.
--- NOTE | 2024-07-16 10:12 | HMCIMG ---
PORTABLE CHEST RADIOGRAPH INDICATION: cp COMPARISON: 07/02/2023 CT chest FINDINGS: Heart size is normal. Mild calcific plaque is present along the aortic arch hussein. The pulmonary vascularity and maulik appear normal. No abnormal pulmonary parenchymal opacity or consolidation identified. No significant pleural effusion noted. No pneumothorax detected. IMPRESSION: No radiographic evidence for any acute cardiopulmonary process.
== END 2024-07-16 01:51 | disposition home or self-care (01) ==
LOC: EDH 22:14
DX: R51.9 Headache, unspecified (principal); M25.512 Pain in left shoulder; N39.0 Urinary tract infection, site not specified; E87.6 Hypokalemia; M62.838 Other muscle spasm; E78.00 Pure hypercholesterolemia, unspecified; I10 Essential (primary) hypertension; Z88.0 Allergy status to penicillin; Z88.1 Allergy status to other antibiotic agents
CPT/HCPCS: 99285; 70450; 96361; 71045; 84484; 80048; 85025; 87086; 81001; 36415; 73030; 93005; 96374; J7030; J1885

== ENCOUNTER → 2025-06-15 | Outpatient (CLI) | payer OTHER ==
[~2025-06-15] MED LIST changes: +IBUP-1492 PO; -IBUP-2070 PO; +LEVO750T68 PO
--- NOTE | 2025-06-17 08:22 | HMCIMG ---
DIGITAL BILATERAL SCREENING MAMMOGRAM Technique: The digital mammographic examination of both breasts in craniocaudal and mediolateral oblique views along with CAD was obtained. History: This is a 79 years year-old female 5, para6 Ab0. Patient has no family history of breast cancer. Patient has no complaint Reference:Prior mammogram from 06/11/2024, 06/10/2023 are available. Breast composition: Breast composition A: The breasts are almost entirely fatty. Finding: The digital mammographic examination of both breasts in craniocaudal and mediolateral oblique view along with CAD demonstrates both breasts to have mostly involutional fatty changes.. There is no evidence of any dendritic mass, cluster microcalcification or architectural distortion. The retromammary fat appears to be normal. IMPRESSION: Unchanged from prior mammography. NO RADIOGRAPHIC EVIDENCE OF MALIGNANT CHANGES. WE WOULD RECOMMEND ANNUAL FOLLOW UP WITH TOMOSYNTHESIS UNLESS OTHERWISE CLINICALLY INDICATED. FINAL ASSESSMENT: ACR: BI-RAD - 1. Negative Mammogram. NOTE: IF A WORK-UP OF THIS PATIENT LEADS TO A BIOPSY, PLEASE FORWARD A COPY OF THE PATHOLOGY REPORT TO OUR OFFICE REQUIRED BY [employer]ECT[employer] MAY 19, 1994. A NEGATIVE MAMMOGRAM SHOULD NOT PRECLUDE BIOPSY OF A CLINICALLY PALPABLE SUSPICIOUS MASS, 10% OF BREAST CANCERS ARE MAMMOGRAPHICALLY OCCULT. THIS MAMMOGRAPHY FACILITY IS FULLY ACCREDITED BY THE FOOD AND DRUG ADMINISTRATION (FDA). THANK YOU FOR THIS REFERRAL.
== END | disposition home or self-care (01) ==
LOC: RAH 09:14
PROVIDERS: ATTEND Internal Medicine
DX: Z12.31 Encounter for screening mammogram for malignant neoplasm of breast (principal)
CPT/HCPCS: 77067